=== PATIENT | female | born 1940 | race Caucasian/White ===

== ENCOUNTER 2024-11-19 15:22 | Inpatient (IN) | payer MEDICARE ==
[~2024-11-19] VITALS: Ht 160 cm; Wt 64.9 kg
[2024-11-19] MEDS ORDERED: LEVO88TA2 PO (16:23)
[2024-11-19 16:38] LABS: PLATELET COUNT (AUTO) 323 K/uL (150-450); RED BLOOD CELL COUNT(AUTO) 4.78 MIL/uL (4.0-5.2); RED CELL DISTRIBUTION WIDTH 13.7 % (11.5-15.0); WHITE BLOOD COUNT (AUTO) 17.9 K/uL (4.3-11.0)
[2024-11-19 16:45] LABS: CALCIUM, SERUM 9.5 mg/dL (8.5-10.1); CREATININE 0.9 mg/dL (0.6-1.3); SODIUM SERUM 142 mmol/L (136-145); UREA NITROGEN, BLOOD 27 mg/dL (7-18)
[2024-11-19 17:00] LABS: ASPARTATE AMINOTRANSFERASE 17 U/L (15-37); NT-PRO BNP 297 pg/mL (0-125); TOTAL PROTEIN, SERUM 7.7 g/dL (6.4-8.2)
[2024-11-19] MEDS ORDERED: ACETAMINOPHEN 325 MG TABLET PO PRN (18:00)
[2024-11-19] MEDS ORDERED: ONDANSETRON HCL/PF 4 MG/2 ML VIAL IVP PRN (18:00)
[2024-11-19] MEDS ORDERED: Z GUARD REMEDY 4 OZ OINT TP PRN (18:00)
[2024-11-19] MEDS ORDERED: MAGNESIUM HYDROXIDE 30 ML UDC PO PRN (18:00)
[2024-11-19] MEDS ORDERED: MAG HYDROX/AL HYDROX/SIMETH 30 ML UDC PO PRN (18:00)
[2024-11-19] MEDS: IV NS 0.9% 1,000 ML IV PRN (19:22)
[2024-11-20] VITALS (7 sets, daily range): BP systolic 127–139; BP diastolic 51–109; TEMP 97.9–98.1; O2SAT 93–97
[2024-11-20 07:07] LABS: PLATELET COUNT (AUTO) 307 K/uL (150-450); RED BLOOD CELL COUNT(AUTO) 4.18 MIL/uL (4.0-5.2); RED CELL DISTRIBUTION WIDTH 14.0 % (11.5-15.0); WHITE BLOOD COUNT (AUTO) 8.5 K/uL (4.3-11.0)
[2024-11-20 07:44] LABS: CALCIUM, SERUM 8.6 mg/dL (8.5-10.1); CREATININE 0.9 mg/dL (0.6-1.3); PHOSPHORUS 3.4 mg/dL (2.5-4.9); SODIUM SERUM 142.0 mmol/L (136-145); UREA NITROGEN, BLOOD 26.0 mg/dL (7-18)
[2024-11-20] MEDS ORDERED: LEVOTHYROXINE SODIUM 88 MCG TABLET PO SCH (09:00)
[2024-11-20] MEDS: LEVOTHYROXINE SODIUM 88 MCG TABLET PO SCH (09:10)
[2024-11-21] VITALS: BP 116/58; TEMP 97.2; O2SAT 93
[2024-11-21 04:00] VITALS: BP 115/55; TEMP 97.2; O2SAT 93
[2024-11-21] MEDS: LEVOTHYROXINE SODIUM 88 MCG TABLET PO SCH (07:05)
[2024-11-21 07:42] LABS: PLATELET COUNT (AUTO) 253 K/uL (150-450); RED BLOOD CELL COUNT(AUTO) 4.14 MIL/uL (4.0-5.2); RED CELL DISTRIBUTION WIDTH 14.0 % (11.5-15.0); WHITE BLOOD COUNT (AUTO) 6.4 K/uL (4.3-11.0)
[2024-11-21 07:45] LABS: ASPARTATE AMINOTRANSFERASE 16.0 U/L (15-37); CALCIUM, SERUM 8.5 mg/dL (8.5-10.1); CREATININE 0.8 mg/dL (0.6-1.3); PHOSPHORUS 2.8 mg/dL (2.5-4.9); SODIUM SERUM 140.0 mmol/L (136-145); TOTAL PROTEIN, SERUM 6.4 g/dL (6.4-8.2); UREA NITROGEN, BLOOD 22.0 mg/dL (7-18)
[2024-11-21 07:56] LABS: APPEARANCE,URINE SLIGHTLY CLOUDY (CLEAR); BLOOD, URINE NEGATIVE Ery/uL (NEGATIVE); LEUKOCYTE ESTERASE ,URINE 2+ (NEGATIVE); NITRITE, URINE POSITIVE (NEGATIVE); UGLUCOSE NEGATIVE (NEGATIVE)
[2024-11-21 08:00] VITALS: BP 148/60; TEMP 98.1; O2SAT 96
[2024-11-21 08:02] LABS: ADD URINE CULTURE YES
[2024-11-21 08:03] LABS: SQUAMOUS EPITHELIAL CELL,UR Moderate /HPF (None Seen)
[2024-11-21 08:50] VITALS: BP_SYST 101; BP_SYST 138; BP_SYST 149; BP_DIAS 63; BP_DIAS 69; BP_DIAS 86
[2024-11-21] MEDS ORDERED: CIPROFLOXACIN HCL 250 MG TABLET PO SCH (10:00)
[2024-11-21] MEDS: CEFTRIAXONE 1 G in IV D5W 50 ML IV SCH (10:00)
[2024-11-21] MEDS: CIPROFLOXACIN HCL 500 MG TABLET PO SCH (10:37)
[2024-11-21] MEDS ORDERED: CIPR-262 PO (11:43)
[2024-11-21] MEDS ORDERED: CIPROFLOXACIN HCL 500 MG TABLET PO SCH (21:00)
[2024-12-30] MEDS ORDERED: NITR100C6 PO (15:26)
[2025-02-04] MEDS ORDERED: NITR100C6 PO (10:11)
== END 2024-11-21 12:55 | DRG 641 ==
LOC: ER 15:34 → TELE1 16:50 → MEDSG1 11-21 10:30
PROVIDERS: ADMIT Internal Medicine; ATTEND Internal Medicine
DX: E86.0 Dehydration (principal); G91.2 (Idiopathic) normal pressure hydrocephalus; N39.0 Urinary tract infection, site not specified; B96.89 Other specified bacterial agents as the cause of diseases classified elsewhere; F03.90 Unspecified dementia, unspecified severity, without behavioral disturbance, psychotic disturbance, mood disturbance, and anxiety; I34.1 Nonrheumatic mitral (valve) prolapse; E03.9 Hypothyroidism, unspecified; R55 Syncope and collapse; Z86.73 Personal history of transient ischemic attack (TIA), and cerebral infarction without residual deficits; Z88.0 Allergy status to penicillin; Z88.2 Allergy status to sulfonamides
CPT/HCPCS: 36415; 70450-TC; 71045-TC; 80048-TC; 80053-TC; 80076-TC; 81001; 82962-TC; 83735-TC; 83880; 84100-TC; 84439-TC; 84443-TC; 84484-TC; 85025-TC; 87081-TC; 87086-TC; 87186-TC; 93307-TC; 97112-TC; 97116-TC; 97530-TC; 97535-TC; A4223; G0378; J0696; J7030; J7060

== ENCOUNTER 2024-12-29 12:13 | Inpatient (IN) | payer MEDICARE ==
[~2024-12-29] VITALS: Ht 160 cm; Wt 70.3 kg
[~2024-12-29 12:13] MED LIST: CIPR-262 PO; LEVO88TA2 PO
[2024-12-29 12:50] LABS: PLATELET COUNT (AUTO) 343 K/uL (150-450); RED BLOOD CELL COUNT(AUTO) 4.93 MIL/uL (4.0-5.2); RED CELL DISTRIBUTION WIDTH 13.5 % (11.5-15.0); WHITE BLOOD COUNT (AUTO) 8.9 K/uL (4.3-11.0)
[2024-12-29] MEDS: IV NS 0.9% 1,000 ML BAG IV ONE (12:51)
[2024-12-29 12:57] LABS: CALCIUM, SERUM 9.4 mg/dL (8.5-10.1); CREATININE 1.0 mg/dL (0.6-1.3); SODIUM SERUM 139 mmol/L (136-145); UREA NITROGEN, BLOOD 22 mg/dL (7-18)
[2024-12-29 13:03] LABS: ASPARTATE AMINOTRANSFERASE 24 U/L (15-37); TOTAL PROTEIN, SERUM 8.0 g/dL (6.4-8.2)
[2024-12-29] MEDS ORDERED: ONDANSETRON HCL/PF 4 MG/2 ML VIAL IVP PRN (15:30)
[2024-12-29] MEDS ORDERED: MAGNESIUM HYDROXIDE 30 ML UDC PO PRN (15:30)
[2024-12-29] MEDS ORDERED: ACETAMINOPHEN 325 MG TABLET PO PRN (15:30)
[2024-12-29 18:00] VITALS: BP 142/78; TEMP 97.5; O2SAT 99
[2024-12-29] MEDS: POLYETHYLENE GLYCOL 3350 17 GM POWD.PACK PO SCH (18:45)
[2024-12-29 20:00] VITALS: BP_SYST 115; BP_SYST 140; BP_DIAS 64; BP_DIAS 69; TEMP 98.1; O2SAT 95; O2SAT 97
[2024-12-30] VITALS (7 sets, daily range): BP systolic 115–169; BP diastolic 61–91; TEMP 97.7–98.1; O2SAT 94–95
[2024-12-30] MEDS: IV NS 0.9% 1,000 ML IV PRN (04:45)
[2024-12-30] MEDS: PANTOPRAZOLE 40 MG TABLET.DR PO SCH (07:30)
[2024-12-30] MEDS: LEVOTHYROXINE SODIUM 88 MCG TABLET PO SCH (08:09)
[2024-12-30] MEDS: MINERAL OIL 133 ML (PYXIS) 1 EA ENEMA RC ONE (10:30)
[2024-12-30 10:47] LABS: APPEARANCE,URINE CLEAR (CLEAR); BLOOD, URINE NEGATIVE Ery/uL (NEGATIVE); LEUKOCYTE ESTERASE ,URINE TRACE (NEGATIVE); NITRITE, URINE POSITIVE (NEGATIVE); UGLUCOSE NEGATIVE (NEGATIVE)
[2024-12-30 11:00] LABS: ADD URINE CULTURE YES
[2024-12-30 11:01] LABS: SQUAMOUS EPITHELIAL CELL,UR 0-2 /HPF (None Seen)
[2024-12-30] MEDS: NITROFURANTOIN/MONOHYDRATE MACROCRYSTALS 100 MG CAPSULE PO SCH (12:45)
[2024-12-30 13:21] LABS: PLATELET COUNT (AUTO) 260 K/uL (150-450); RED BLOOD CELL COUNT(AUTO) 4.75 MIL/uL (4.0-5.2); RED CELL DISTRIBUTION WIDTH 13.3 % (11.5-15.0); WHITE BLOOD COUNT (AUTO) 8.9 K/uL (4.3-11.0)
[2024-12-30 13:33] LABS: CALCIUM, SERUM 9.1 mg/dL (8.5-10.1); CREATININE 0.8 mg/dL (0.6-1.3); PHOSPHORUS 2.9 mg/dL (2.5-4.9); SODIUM SERUM 141.0 mmol/L (136-145); UREA NITROGEN, BLOOD 15.0 mg/dL (7-18)
[2024-12-30] MEDS ORDERED: NITR100C6 PO (15:26)
== END 2024-12-30 18:00 | disposition home health service (06) | DRG 641 ==
LOC: ER 12:15 → TELE 16:02 → MED 12-30 13:03
PROVIDERS: ADMIT Nurse Practitioner Family; ATTEND Nurse Practitioner Family
DX: E86.0 Dehydration (principal); N39.0 Urinary tract infection, site not specified; E03.9 Hypothyroidism, unspecified; R79.89 Other specified abnormal findings of blood chemistry; Z88.2 Allergy status to sulfonamides; Z88.8 Allergy status to other drugs, medicaments and biological substances; Z88.0 Allergy status to penicillin; Z91.013 Allergy to seafood; Z79.890 Hormone replacement therapy; Z86.73 Personal history of transient ischemic attack (TIA), and cerebral infarction without residual deficits; F03.90 Unspecified dementia, unspecified severity, without behavioral disturbance, psychotic disturbance, mood disturbance, and anxiety; I34.1 Nonrheumatic mitral (valve) prolapse; K57.30 Diverticulosis of large intestine without perforation or abscess without bleeding; K59.00 Constipation, unspecified
CPT/HCPCS: 36415; 70450-TC; 71045-TC; 80048-TC; 80076-TC; 81001; 83690-TC; 83735-TC; 84100-TC; 84484-TC; 85025-TC; 87086-TC; 97112-TC; 97116-TC; 97530-TC; A4223; G0378; J7030

== ENCOUNTER 2025-01-31 12:02 | Inpatient (IN) | payer MEDICARE ==
[~2025-01-31] VITALS: Ht 157.5 cm; Wt 71.2 kg
[~2025-01-31 12:02] MED LIST changes: -CIPR-262 PO; +NITR100C6 PO
[2025-01-31] MEDS: IV NS 0.9% 500 ML BAG IV ONE (12:25)
[2025-01-31 12:31] LABS: PLATELET COUNT (AUTO) 323 K/uL (150-450); RED BLOOD CELL COUNT(AUTO) 4.93 MIL/uL (4.0-5.2); RED CELL DISTRIBUTION WIDTH 13.8 % (11.5-15.0); WHITE BLOOD COUNT (AUTO) 8.2 K/uL (4.3-11.0)
[2025-01-31 12:49] LABS: ASPARTATE AMINOTRANSFERASE 22 U/L (15-37); CALCIUM, SERUM 9.1 mg/dL (8.5-10.1); SODIUM SERUM 139 mmol/L (136-145); TOTAL PROTEIN, SERUM 7.9 g/dL (6.4-8.2); UREA NITROGEN, BLOOD 22 mg/dL (7-18)
[2025-01-31 12:59] LABS: CREATININE 0.9 mg/dL (0.6-1.3)
[2025-01-31] MEDS ORDERED: MORPHINE SULFATE INJ 2 MG/ML DISP.SYRIN IV PRN (14:00)
[2025-01-31] MEDS ORDERED: ACETAMINOPHEN 325 MG TABLET PO PRN (14:00)
[2025-01-31] MEDS ORDERED: ONDANSETRON HCL/PF 4 MG/2 ML VIAL IVP PRN (14:00)
[2025-01-31 15:00] VITALS: BP 114/44; TEMP 97.3; O2SAT 95
[2025-01-31] MEDS: IV NS 0.9% 1,000 ML IV SCH (16:15)
[2025-01-31] MEDS: DOCUSATE SODIUM LIQ 100 MG/10 ML UDC PO SCH (16:47)
[2025-01-31 20:00] VITALS: BP_SYST 140; BP_SYST 150; BP_DIAS 68; BP_DIAS 71; TEMP 97.3; O2SAT 97
[2025-01-31] MEDS: HEPARIN SODIUM, PORCINE 5000 UNITS/1 ML VIAL SQ SCH (20:21)
[2025-02-01] VITALS (11 sets, daily range): BP systolic 120–173; BP diastolic 63–103; TEMP 97.3–97.9; O2SAT 94–99
[2025-02-01 06:59] LABS: PLATELET COUNT (AUTO) 271 K/uL (150-450); RED BLOOD CELL COUNT(AUTO) 4.51 MIL/uL (4.0-5.2); RED CELL DISTRIBUTION WIDTH 13.9 % (11.5-15.0); WHITE BLOOD COUNT (AUTO) 6.6 K/uL (4.3-11.0)
[2025-02-01 07:20] LABS: ASPARTATE AMINOTRANSFERASE 22.0 U/L (15-37); CALCIUM, SERUM 8.8 mg/dL (8.5-10.1); CREATININE 0.7 mg/dL (0.6-1.3); PHOSPHORUS 3.3 mg/dL (2.5-4.9); SODIUM SERUM 140.0 mmol/L (136-145); TOTAL PROTEIN, SERUM 6.8 g/dL (6.4-8.2); UREA NITROGEN, BLOOD 18.0 mg/dL (7-18)
[2025-02-01] MEDS: LEVOTHYROXINE SODIUM 88 MCG TABLET PO SCH (07:21)
[2025-02-01] MEDS: POLYETHYLENE GLYCOL 3350 17 GM POWD.PACK PO SCH (08:57)
[2025-02-01 10:45] LABS: APPEARANCE,URINE SLIGHTLY CLOUDY (CLEAR); BLOOD, URINE NEGATIVE Ery/uL (NEGATIVE); LEUKOCYTE ESTERASE ,URINE 3+ (NEGATIVE); NITRITE, URINE POSITIVE (NEGATIVE); UGLUCOSE NEGATIVE (NEGATIVE)
[2025-02-01 10:46] LABS: ADD URINE CULTURE YES; SQUAMOUS EPITHELIAL CELL,UR Rare /HPF (None Seen)
[2025-02-01] MEDS: IV NS 0.9% 1,000 ML IV PRN (19:35)
[2025-02-01] MEDS: CEFTRIAXONE 1 G in IV D5W 50 ML IV SCH (19:35)
[2025-02-02] VITALS (9 sets, daily range): BP systolic 112–176; BP diastolic 60–117; TEMP 97–98.4; O2SAT 95–99
[2025-02-02] MEDS: hydrALAZINE HCL IV 20 MG VIAL IV PRN (04:35)
[2025-02-02] MEDS: hydrALAZINE HCL IV 20 MG VIAL IV ONE (08:33)
[2025-02-02] MEDS: LACTULOSE 10 G/15 ML UDC (PYXIS) PO ONE (08:37)
[2025-02-02] MEDS: LOSARTAN POTASSIUM 25 MG TABLET PO SCH (09:30)
[2025-02-02] MEDS ORDERED: NA PHOS,M-B/NA PHOS,DI-BA 1 EA ENEMA RC PRN (16:30)
[2025-02-02] MEDS: BISACODYL SUPP (10 MG) 10 MG/SUPP.RECT SUPP.RECT RC PRN (17:11)
[2025-02-03] VITALS: BP 138/55; TEMP 97.3; O2SAT 96
[2025-02-03 04:00] VITALS: BP 114/82; TEMP 98; O2SAT 95
[2025-02-03] MEDS: LACTOBACILLUS RHAMNOSUS GG 1 EACH CAP.SPRINK PO SCH (11:04)
[2025-02-03 16:00] VITALS: BP_SYST 126; BP_SYST 137; BP_DIAS 55; BP_DIAS 68; TEMP 97.9; TEMP 98.1; O2SAT 96; O2SAT 98
[2025-02-03] MEDS: IV 1/2NS 1000 ML 1,000 ML IV PRN (16:49)
[2025-02-03 20:00] VITALS: BP 119/107; TEMP 97.5; O2SAT 96
[2025-02-04] VITALS: BP 128/64; TEMP 97.5; O2SAT 96
[2025-02-04 08:00] VITALS: BP 138/66; TEMP 97.7; O2SAT 97
[2025-02-04] MEDS ORDERED: NITR100C6 PO (10:11)
[2025-02-04 10:12] LABS: IMMUNOGLOBULIN A, SERUM 165 mg/dL (64-422); IMMUNOGLOBULIN M, SERUM 1704 mg/dL (26-217)
[2025-02-04 16:00] VITALS: BP 129/90; TEMP 98.1; O2SAT 94
[2025-02-04 20:00] VITALS: BP 119/52; TEMP 97.5; O2SAT 98
[2025-02-05] VITALS: BP 128/88; TEMP 97.6; O2SAT 98
[2025-02-05] MEDS: NITROFURANTOIN/MONOHYDRATE MACROCRYSTALS 100 MG CAPSULE PO SCH (05:06)
[2025-02-05 08:42] VITALS: BP 128/66; TEMP 97.9; O2SAT 97
== END 2025-02-05 16:15 | disposition home health service (06) | DRG 640 ==
LOC: ER 12:04 → TELE 14:56
PROVIDERS: ADMIT Internal Medicine; ATTEND Internal Medicine
DX: E86.0 Dehydration (principal); G93.41 Metabolic encephalopathy; N39.0 Urinary tract infection, site not specified; I95.1 Orthostatic hypotension; F03.90 Unspecified dementia, unspecified severity, without behavioral disturbance, psychotic disturbance, mood disturbance, and anxiety; E03.9 Hypothyroidism, unspecified; K59.00 Constipation, unspecified; Z88.0 Allergy status to penicillin; Z88.2 Allergy status to sulfonamides; I34.1 Nonrheumatic mitral (valve) prolapse; Z87.440 Personal history of urinary (tract) infections; B96.20 Unspecified Escherichia coli [E. coli] as the cause of diseases classified elsewhere; R19.7 Diarrhea, unspecified
CPT/HCPCS: 36415; 70450-TC; 71045-TC; 80048-TC; 80053-TC; 80076-TC; 81001; 82784; 82962-TC; 83735-TC; 84100-TC; 84443-TC; 84484-TC; 85025-TC; 85652-TC; 86140-TC; 87081-TC; 87086-TC; 87186-TC; 97110-TC; 97116-TC; 97530-TC; 97535-TC; G0378; J0360; J0696; J1644; J3490; J7030; J7060

== ENCOUNTER 2025-04-01 13:18 | Emergency (ER) | payer MEDICARE ==
[~2025-04-01] VITALS: Ht 154.9 cm; Wt 60.8 kg
[2025-04-01] MEDS: IV NS 0.9% 500 ML BAG IV ONE (13:58)
[2025-04-01 14:07] LABS: PLATELET COUNT (AUTO) 280 K/uL (150-450); RED BLOOD CELL COUNT(AUTO) 4.92 MIL/uL (4.0-5.2); RED CELL DISTRIBUTION WIDTH 14.1 % (11.5-15.0); WHITE BLOOD COUNT (AUTO) 6.8 K/uL (4.3-11.0)
[2025-04-01 14:14] LABS: CALCIUM, SERUM 8.8 mg/dL (8.5-10.1); CREATININE 0.8 mg/dL (0.6-1.3); INR 1.01 (0.91-1.10); SODIUM SERUM 139.0 mmol/L (136-145); UREA NITROGEN, BLOOD 19.0 mg/dL (7-18)
[2025-04-01 14:20] LABS: ASPARTATE AMINOTRANSFERASE 19.0 U/L (15-37); TOTAL PROTEIN, SERUM 7.9 g/dL (6.4-8.2)
[2025-04-01 14:23] LABS: LACTIC ACID 1.3 mmol/L (0.4-2.0)
[2025-04-01 15:43] LABS: APPEARANCE,URINE CLEAR (CLEAR); BLOOD, URINE NEGATIVE Ery/uL (NEGATIVE); LEUKOCYTE ESTERASE ,URINE TRACE (NEGATIVE); NITRITE, URINE NEGATIVE (NEGATIVE); UGLUCOSE TRACE mg/dL (NEGATIVE)
[2025-04-01 15:53] LABS: ADD URINE CULTURE YES; SQUAMOUS EPITHELIAL CELL,UR Many /HPF (None Seen); YEAST,URINE Many /HPF (None Seen)
[2025-04-01] MEDS ORDERED: DIPHENOXYLATE HCL/ATROP SULF 1 UDTAB TABLET ONE (16:49)
[2025-04-01] MEDS ORDERED: CEPHALEXIN MONOHYDRATE 500 MG CAPSULE PO ONE (16:49)
[2025-04-01] MEDS ORDERED: FLUCONAZOLE (100 MG) 100 MG TABLET ONE (16:50)
[2025-04-01] MEDS: FLUCONAZOLE (100 MG) 100 MG TABLET PO ONE (16:59)
[2025-04-01] MEDS: DIPHENOXYLATE HCL/ATROP SULF 1 UDTAB TABLET PO ONE (17:00)
[2025-04-01] MEDS: CEPHALEXIN MONOHYDRATE 500 MG CAPSULE PO ONE (17:00)
[2025-04-01] MEDS ORDERED: DIPH1TAB PO (17:11)
[2025-04-01] MEDS ORDERED: CEPH500C2 PO (17:11)
[2025-04-01] MEDS ORDERED: FLUC150T PO (17:13)
[2025-04-01 18:25] VITALS: BP 145/83; TEMP 98.6; O2SAT 99
== END 2025-04-01 18:26 | disposition home or self-care (01) ==
LOC: ER 13:20
DX: N13.6 Pyonephrosis (principal); I34.1 Nonrheumatic mitral (valve) prolapse; F03.90 Unspecified dementia, unspecified severity, without behavioral disturbance, psychotic disturbance, mood disturbance, and anxiety; B37.9 Candidiasis, unspecified; R94.31 Abnormal electrocardiogram [ECG] [EKG]; Z88.0 Allergy status to penicillin; Z88.2 Allergy status to sulfonamides; Z88.8 Allergy status to other drugs, medicaments and biological substances; Z90.10 Acquired absence of unspecified breast and nipple; Z91.013 Allergy to seafood
CPT/HCPCS: 99285; 74176; 71045; 93005; 85025; 80048; 87040 ×2; 87086; 83605; 80076; 81001; 36415; 84484; 85730; J7040